=== PATIENT | female | born 1985 | race Caucasian/White ===

== ENCOUNTER 2018-09-20 21:11 | Emergency (ER) | payer BC, OTHER ==
--- NOTE | 2018-09-20 23:14 | RAD ---
RIGHT ANKLE THREE VIEWS: Date: 09-20-18 FINDINGS: No fracture was seen. The joint space appears normal. The articular surfaces are smooth. IMPRESSION: No acute finding. POS: HOME
--- NOTE | 2018-09-20 23:15 | RAD ---
RIGHT FOOT THREE VIEWS: Date: 09-20-18 FINDINGS: No fracture or joint abnormality was seen. All bones appeared intact. IMPRESSION: No acute findings. POS: HOME
== END 2018-09-20 21:52 | disposition home or self-care (01) ==
LOC: BURERS 21:11
DX: S93.401A Sprain of unspecified ligament of right ankle, initial encounter (principal); E03.9 Hypothyroidism, unspecified; X50.9XXA Other and unspecified overexertion or strenuous movements or postures, initial encounter

== ENCOUNTER 2022-03-03 17:22 | Emergency (ER) | payer BC ==
[~2022-03-03 17:22] MED LIST: Iopamidol 370 76% 100 ML VIAL ONE
[2022-03-03] MEDS ORDERED: Aspirin Chewable 81 MG TAB ONE (17:52)
[2022-03-03 18:02] LABS: #Basophils 0.1 thou/uL (0.0-0.2); #Eosinphils 0.1 thou/uL (0.0-0.7); #Lymphocytes 1.2 thou/uL (1.20-3.40); #Monocytes 0.3 thou/uL (0.11-0.59); #Neutrophils 3.4 thou/uL (1.40-6.50); %Basophils 1.1 % (0.0-1.0); %Eosinophils 2.3 % (0.0-10.0); %Lymphocytes 23.7 % (21.0-51.0); %Monocytes 6.4 % (0.0-10.0); %Neutrophils 66.6 % (42.0-75.0); Hemoglobin 14.3 g/dL (12.0-16.0); Mean Corpuscular Hemoglobin 29.8 pg (27.0-31.0); Mean Corpuscular Volume 93.2 fl (78.0-98.0); Mean Platelet Volume 10.4 fL (7.4-10.4); Platelet Count 106 thou/uL (130-400); RBC Distribution Width 12.6 % (11.5-14.5); Red Blood Cell (RBC) Count 4.79 mill/uL (4.20-5.40); White Blood Cell (WBC) Count 5.1 thou/uL (4.8-10.8)
[2022-03-03 18:06] LABS: BHCG - Serum Negative (NEGATIVE); Pregs Control Bar Appear? YES (CONTROL BAR)
[2022-03-03 18:07] LABS: Pregs Control Background? CLEAR/WHITE (CLR/WHITE)
[2022-03-03 18:09] LABS: ALT (SGPT) 14 U/L (8-55); AST (SGOT) 22 U/L (5-34); Albumin 4.3 g/dL (3.5-5.0); Alkaline Phosphatase 62 U/L (40-110); Anion Gap 16 mmol/L (10-20); BUN (Urea Nitrogen) 14 mg/dL (7.0-18.7); Bilirubin, Total 0.6 mg/dL (0.2-1.2); Calc. Creatinine Clearance 0 mL/min (70-130); Calcium 9.1 mg/dL (7.8-10.44); Carbon Dioxide 22 mmol/L (22-29); Chloride 106 mmol/L (98-107); Estimated GFR 84; Globulin 3.2 g/dL (2.4-3.5); Glucose 98 mg/dL (70-105); Lipase 50 U/L (8-78); Protein, Total 7.5 g/dL (6.0-8.3); Sodium 140 mmol/L (136-145)
[2022-03-03 18:20] LABS: Platelet Morphology Comment Appears Decreased; RBC Morphology Normal
[2022-03-03 20:35] LABS: PTT 32.4 sec (22.9-36.1); Prothrombin Time 13.5 sec (12.0-14.7)
[2022-03-03] MEDS ORDERED: Heparin 25,000 units/D5W 500 ML ONE (21:00)
[2022-03-03] MEDS ORDERED: Heparin 10,000 UNITS/1 ML VIAL ONE (21:08)
== END 2022-03-04 | disposition short-term general hospital (02) ==
LOC: BURERS 17:22
DX: I26.99 Other pulmonary embolism without acute cor pulmonale (principal)
CPT/HCPCS: 71275; 80053; 83690; 84484; 84703; 85025; 85610; 85730; 93005; 96374; 96375; J1644; Q9967

== ENCOUNTER 2022-06-17 14:37 | Emergency (ER) | payer BC ==
[2022-06-17 15:02] LABS: #Basophils 0.1 thou/uL (0.0-0.2); #Eosinphils 0.1 thou/uL (0.0-0.7); #Lymphocytes 1.6 thou/uL (1.20-3.40); #Monocytes 0.4 thou/uL (0.11-0.59); #Neutrophils 4.1 thou/uL (1.40-6.50); %Basophils 0.9 % (0.0-1.0); %Eosinophils 1.9 % (0.0-10.0); %Lymphocytes 25.2 % (21.0-51.0); %Monocytes 5.9 % (0.0-10.0); %Neutrophils 66.2 % (42.0-75.0); Hemoglobin 14.5 g/dL (12.0-16.0); Mean Corpuscular HGB CONC 33.1 g/dL (32.0-36.0); Mean Corpuscular Hemoglobin 29.8 pg (27.0-31.0); Mean Corpuscular Volume 90.1 fl (78.0-98.0); Mean Platelet Volume 8.4 fL (7.4-10.4); Platelet Count 137 10x3/uL (130-400); RBC Distribution Width 12.9 % (11.5-14.5); Red Blood Cell (RBC) Count 4.87 mill/uL (4.20-5.40); White Blood Cell (WBC) Count 6.2 10x3/uL (4.8-10.8)
[2022-06-17 15:12] LABS: Pregnancy Test - Urine (BHCG) Negative (Negative)
[2022-06-17 15:13] LABS: Bilirubin Negative (Negative); Blood, Urine Negative (Negative); Clarity Clear (Clear); Glucose, Urine (Dipstick) Negative (Negative); Ketone, Urine Negative (Negative); Leukocyte Trace (Negative); Nitrite Negative (Negative); Pregu Control Background? CLEAR/WHITE (CLR/WHITE); Pregu Control Bar Appear? YES (CONTROL BAR); Protein, Urine (Dipstick) Negative (Neg-Trace); Urobilinogen 0.2 mg/dL (Less than 2)
[2022-06-17 15:17] LABS: ALT (SGPT) 16 U/L (8-55); AST (SGOT) 14 U/L (5-34); Albumin 4.6 g/dL (3.5-5.0); Alkaline Phosphatase 62 U/L (40-110); Anion Gap 13 mmol/L (10-20); BUN (Urea Nitrogen) 9 mg/dL (7.0-18.7); Bilirubin, Total 0.5 mg/dL (0.2-1.2); CK (CPK) 36 U/L (29-168); Calc. Creatinine Clearance 0 mL/min (70-130); Calcium 9.3 mg/dL (7.8-10.44); Carbon Dioxide 26 mmol/L (22-29); Chloride 105 mmol/L (98-107); Estimated GFR 94; Globulin 3.2 g/dL (2.4-3.5); Glucose 93 mg/dL (70-105); Magnesium 2.2 mg/dL (1.6-2.6); Potassium 3.7 mmol/L (3.5-5.1); Protein, Total 7.8 g/dL (6.0-8.3); Sodium 140 mmol/L (136-145)
[2022-06-17 15:18] LABS: Bacteria/HPF 2+ HPF (None Seen); RBC/HPF 0-3 HPF (0-3)
== END 2022-06-17 16:09 | disposition home or self-care (01) ==
LOC: BURERS 14:37
DX: E03.9 Hypothyroidism, unspecified (principal); N39.0 Urinary tract infection, site not specified
CPT/HCPCS: 71045; 80053; 81003; 81015; 81025; 82550; 83605; 83735; 83880; 84443; 84484; 85025; 85379; 93005